=== PATIENT | female | born 1970 | race Native Hawaiian/Other Pacific Islander ===

== ENCOUNTER 2021-03-13 09:36 | Outpatient (CLI) | payer OTHER ==
[2021-03-13 11:07] LABS: PLATELET COUNT 324 K/uL (152-353)
[2021-03-13 11:24] LABS: POTASSIUM 4.4 mmol/L (3.6-5.2)
== END 2021-03-13 19:30 | disposition home or self-care (01) ==
LOC: LABW 09:36
PROVIDERS: ATTEND Family Medicine
DX: I10 Essential (primary) hypertension (principal); N39.0 Urinary tract infection, site not specified
CPT/HCPCS: 36415; 80053; 80061; 81000; 83036; 84439; 84443; 85027; 87086; 87088